=== PATIENT | female | born 1990 | race Caucasian/White ===

== ENCOUNTER 2024-04-19 21:09 | Outpatient (REF) | payer BC, SELFPAY ==
[2024-04-22 19:11] LABS: Age Gdln ACOG Testing Note (.); HPV Aptima Negative (Negative); IGP, Aptima HPV, rfx 16/18,45 Note (.)
== END 2024-04-19 21:10 | disposition home or self-care (01) ==
LOC: LAB 21:09
PROVIDERS: PCP Obstetrics & Gynecology; Visit Provider Obstetrics & Gynecology
DX: Z01.419 Encounter for gynecological examination (general) (routine) without abnormal findings (principal)
CPT/HCPCS: 87624; 88175

== ENCOUNTER 2024-05-14 12:48 | Outpatient (OUT) | payer BC, SELFPAY ==
--- NOTE | 2024-05-14 12:51 | US_ITS ---
Patient Name: LEONORA FAYE MR#: [id number] : 1990 Exam Date: 05/14/2024 Ordering Doctor: DR Jarocho Romo . RADIOLOGY REPORT PROCEDURE: MM TOMOSYNTHESIS DIAGNOSTIC BI, 05/14/2024, 13:09 US BREAST LT LIMITED, 05/14/2024, 13:41 COMPARISON: None. INDICATIONS: Left Breast Lump N63.25 Calculator Name NCI Breast Cancer Risk Assessment Tool 5 Year Breast Cancer Risk Not Applicable. Lifetime Breast Cancer Risk Not Applicable. Personal Breast Cancer No Personal Ovarian Cancer No Treatments None Family Cancers None LOCATION: [facility] BREAST COMPOSITION: There are scattered areas of fibroglandular density. FINDINGS: DIAGNOSTIC CATEGORY 1--NEGATIVE. RIGHT BREAST: No significant suspicious finding. LEFT BREAST: Two skin surface markers present over the lateral left breast localize area of palpable lumps. No suspicious mammographic finding. Ultrasound evaluation demonstrates normal appearing fibroglandular tissue. RECOMMENDATIONS: CLINICAL EVALUATION. PLEASE NOTE: A NORMAL MAMMOGRAM DOES NOT EXCLUDE THE POSSIBILITY OF BREAST CANCER. A CLINICALLY SUSPICIOUS PALPABLE LUMP SHOULD BE BIOPSIED. Dictated by: Víctor Esquivel M.D. on 05/14/2024 at 14:14 Approved by: Víctor Esquivel M.D. on 05/14/2024 at 14:17
--- OUTSIDE RECORDS SUMMARY | 2024-05-14 13:05 | XMS_ITS | CCD ---
Author Organization [facility] Inform ion Partnership [facility] Care Team Providers Care Pocket Machine Operator Name Role Phone Shannon Mancilla DO Primary Care Provider SHANNON MANCILLA Primary Care Unavailable SHANNON MANCILLA Referring Unavailable SHANNON MANCILLA Primary Care Unavailable Edelmira Perdomo Unavailable DR SKYLER SEGOVIA Admitting Unavailable DR SKYLER SEGOVIA Attending Unavailable DR SKYLER SEGOVIA Consulting Unavailable Zee Goodman Unavailable SKYLER SEGOVIA Attending Unavailable Medications Current Medications Medication Drug Class(es) Dates Sig (Normalized) Sig (Original) [id number] 200 actuat albuterol 0.09 mg/actuat metered dose inhaler (4 sources) beta2-Adrenergic Agonist Start: 08-08-2023 take 2 puff(s) by inhalation four times daily as needed Albuterol Sulfate HFA 108 (90 Base) MCG/ACT 2 puffs Inhalation 4 times a day prn Jul, Active Start: 12-30-2022 take 2 puff(s) by in halation every four hours as needed Albuterol Sulfate HFA 108 (90 Base) MCG/ACT 2 puffs as needed Inhalation every 4 hrs Dec, Active Start: 12-30-2022 take 2 puff(s) by in halation every four hours as needed Albuterol Sulfate HFA 108 (90 Base) MCG/ACT 2 puffs as needed Inhalation every 4 hrs Dec, Not-Taking Start: 11-12-2021 take 2 puff(s) by in halation four times daily as needed Albuterol Sulfate HFA 108 (90 Base) MCG/ACT 2 puffs Inhalation qid prn Oct, Active amoxicillin 875 mg / clavulanate 125 mg oral tablet (1 source) Penicillin-class Antibacterial Start: 08-08-2023 take 1 tablet by mouth every twelve hours Amoxicillin-Pot Clavulanate 875-125 MG 1 tablet Orally every 12 hrs for 10 day(s) Jul, Active benzonatate 200 mg oral capsule (1 source) Non-narcotic Antitussive Start: 08-08-2023 take 1 capsule by mouth every eight hours Benzonatate 200 MG 1 capsule Orally Three times a day Jul, Active citalopram 20 mg oral tablet (4 sources) Serotonin Reuptake Inhibitor Start: 03-20-2021 take 1 tablet by mouth once daily citalopram (CELEXA) 20 MG tablet Indications: Moderate episode of recurrent major depressive disorder (HCC) Take 1 tablet by mouth daily 30 tablet 0 03/20/2021 Active CeleXA Not-Takin g CeleXA Active levonorgestrel 0.946064 mg/hr intrauterine system (1 source) Progestin, Progestin-containing Intrauterine Device levonorgestrel (KITTY) IUD 13.5 mg 1 each by Intrauterine route once 0 Active predniSONE 20 mg oral tablet (1 source) Start: 2022 take 1 tablet by mouth three times daily, then take 1 tablet by mouth twice daily, then take 1 tablet by mouth once daily, then take 0.5 tablet by mouth once daily, then take 0.5 tablet by mouth every other day predniSONE 20 MG as directed Orally as directed for 8 days Take 1 tablet p.o. 3 times daily x3 days, 1 tablet p.o. twice daily x3 days, 1 tablet daily x2 days, half tablet daily x2 days, half tablet every other day x2 days Jul, Active Completed/Discontinued Medications Medication Drug Class(es) Dates Sig (Normalized) Sig (Original) azithromycin 250 mg oral tablet (3 sources) Macrolide Antimicrobial Start: 12-30-2022 Azithromycin 250 MG 2 tablets on the first day, then 1 tablet daily for 4 days Orally Once a day for 5 day(s) Dec, Not-Taking Start: 11-12-2021 Zithromax 250 MG 2 tablet on the first day, then 1 tablet daily for 4 days Orally Once a day for 5 day(s) Oct, Active methylPREDNISolone 4 mg oral tablet (3 sources) Corticosteroid Start: 12-30-2022 methylPREDNISo lone 4 MG as directed Orally Once a day for 6 days Dec, Not-Taking Start: 11-12-2021 Medrol 4 MG as directed Orally for 6 days Oct, Active TB Test (2 sources) Start: 06-21-2020 TB Test May .01 mL Problems Problem Classification Problem Date Documented Date Episodic/Chronic Chronic obstructive pulmonary disease and bronchiectasis (3 sources) Bronchitis, not specified as acute or chronic Onset: 11-12-2021 Resolved: 11-12-2021 Episodic Immunizations and screening for infectious disease (2 sources) Encounter for screening for human papillomavirus (HPV); Translations: [Contact with and (suspected) exposure to other viral communicable diseases] Onset: 07-31-2022 Episodic Other connective tissue disease (1 source) Swelling of left lower limb; Translations: [Other specified soft tissue disorders] Episodic Other screening for suspected conditions (not mental disorders or infectious disease) (4 sources) Encounter for screening for malignant neoplasm of cervix; Translations: [ENC SCREENING MALIG NEOPLASM CERV] Onset: 07-29-2022 Episodic Results Test Name Value Interpretation Reference Range Facility COVID + FLU Quick Testingon 12-30-2022 SARS-CoV-2 (COVID-19) RNA MASON+probe Ql (Unsp spec) Negative [facility] Other COVID + FLU Quick Testing Negative [facility] Other PAP ACOG PANEL 2: 30 to 65on 08-07-2022 . . Normal [facility] Comment on above: Result Comment: Perf ormed at: WB Performed By: #### [id number] #### [facility] [address] [address] [address] Oli Epps Age Gdln ACOG Testing 30-65 Normal [facility] Comment on above: Performed By: #### [id number] #### [facility] [address] [address] [address] Oli Epps DIAGNOSIS: Comment Abnormal [facility] Comment on above: Result Comment: EPIT HELIAL CELL ABNORMALITY. LOW GRADE SQUAMOUS INTRAEPITHELIAL LESION (LSIL). Performed at: [facility] Performed By: #### [id number] #### [facility] [address] [place] [address] Dr. Oli Epps Electronically signed by: Comment Normal [facility] Comment on above: Result Comment: Jd Palacio MD, Pathologist Performed at: WB Performed By: #### [id number] #### [facility] [address] [place] [address] Dr. Oli Epps HPV Aptima Negative Normal Negative [facility] Comment on above: Result Comment: This nucleic acid amplification test detects fourteen high-risk HPV types (16,18,31,33,35,39,45,51,52,56,58,59,66,68) without differentiation. Performed at: =G Performed By: #### [id number] #### [facility] [address] [place] [address] Dr. Oli Epps Methodology: Comment Normal [facility] Comment on above: Result Comment: This liquid based ThinPrep(R) pap test was screened with the use of an image guided system. Performed at: WB Performed By: #### [id number] #### [facility] [address] [place] [address] Dr. Oli Epps Note: Comment Normal [facility] Comment on above: Result Comment: The Pap smear is a screening test designed to aid in the detection of premalignant and malignant conditions of the uterine cervix. It is not a diagnostic procedure and should not be used as the sole means of detecting cervical cancer. Both false-positive and false-negative reports do occur. . Performed at: WB Performed By: #### [id number] #### [facility] [address] [place] [address] Dr. Oli Epps Pathologist Provided ICD10 Comment Normal [facility] Comment on above: Result Comment: [id number] Performed at: WB Performed By: #### [id number] #### [facility] [address] [place] [address] Dr. Oli Epps Performed by: Comment Normal [facility] Comment on above: Result Comment: Raza Klein, Finishing Operator (ASCP) Performed at: WB Performed By: #### [id number] #### [facility] [address] [place], [place] [address] Dr. Oli Epps Specimen adequacy: Comment Normal [facility] Comment on above: Result Comment: Sati sfactory for evaluation. Endocervical and/or squamous metaplastic cells (endocervical component) are present. Performed at: WB Performed By: #### [id number] #### [facility] [address] [address] [address] Oli Epps XR CHEST (2 VW)on 11-07-2021 SARS-CoV-2 (COVID-19) Ab IA Ql Exam: XR CHEST (2 VW) CLINICAL HISTORY: U07.1 Lab test positive for detection of COVID-19 virus ICD10 COMPARISON: None CHEST X-ray, 2 VIEWS FINDINGS: The cardiomediastinal silhouette is within normal limits. There are no infiltrates, consolidations or effusions. There is mild thoracolumbar scoliosis. IMPRESSION: No radiographic evidence of acute intrathoracic process. Interpreted by: Kwame Ibarra MD Signed by: Kwame Ibarra MD 11/07/21 Final result Normal [facility] US DUP LOWER EXTREMITY LEFT VENon 03-31-2021 US DUP LOWER EXTREMITY LEFT MICK US DUP LOWER EXTREMITY LEFT MICK : 03/31/2021 CLINICAL HISTORY: M79.89 Left leg swelling ICD10. COMPARISON: None available. Grayscale, compression, color and waveform Doppler analysis of the left lower extremity deep venous system was performed with augmentation. FINDINGS: There is no deep venous thrombosis, abnormal masses, organized fluid collections or other findings of concern identified within the left lower extremity. IMPRESSION: NO LEFT LOWER EXTREMITY DVT IDENTIFIED. Interpreted by: Víctor Franks MD Signed by: Víctor Franks MD 03/31/21 Final result Normal [facility] US DUP LOWER EXTREMITY LEFT VENOrdered By: Shannon Mancilla on 03-31-2021 NO LEFT LOWER EXTREMITY DVT IDENTIFIED. [employer] [facility] Work Phone: US DUP LOWER EXTREMITY LEFT MICK : 03/31/2021 CLINICAL HISTORY: M79.89 Left leg swelling ICD10. COMPARISON: None available. Grayscale, compression, color and waveform Doppler analysis of the left lower extremity deep venous system was performed with augmentation. FINDINGS: There is no deep venous thrombosis, abnormal masses, organized fluid collections or other findings of concern identified within the left lower extremity. [facility] Phone: Nathan, Chpo Incoming Radiant Results From [employer] - 03/31/2021 2:18 PM EDT US DUP LOWER EXTREMITY LEFT MICK : 03/31/2021 CLINICAL HISTORY: M79.89 Left leg swelling ICD10. COMPARISON: None available. Grayscale, compression, color and waveform Doppler analysis of the left lower extremity deep venous system was performed with augmentation. FINDINGS: There is no deep venous thrombosis, abnormal masses, organized fluid collections or other findings of concern identified within the left lower extremity. IMPRESSION: NO LEFT LOWER EXTREMITY DVT IDENTIFIED. [facility] Phone: [facility] Phone: HIV Ag/Abon 03-22-2021 HIV Ag/Ab Non-Reactive Normal NR [facility] Comment on above: Result Comment: No l aboratory evidence of HIV infection. If acute HIV infection is suspected, consider testing for HIV-1 RNA. [facility] [address] [place] [id number] CBC With Platelet No Differe ntialon 03-20-2021 Erythrocyte distribution width (RBC) [Ratio] 14.1 % Normal 11.5-14.5 [facility] Comment on above: Performed By: #### C BCND #### [facility] [address] [place] [address] Hematocrit (Bld) [Volume fraction] 40.7 % Normal 37.0-47.0 [facility] Comment on above: Performed By: #### C BCND #### [facility] [address] [place] [address] Hemoglobin (Bld) [Mass/Vol] 13.8 g/dL Normal 12.0-16.0 [facility] Comment on above: Performed By: #### C BCND #### [facility] [address] [place] [address] MCH (RBC) [Entitic mass] 29.2 pg Normal 27.0-31.3 [facility] Comment on above: Performed By: #### C BCND #### [facility] [address] [place] [address] MCHC 33.8 % Normal 33.0-37.0 [facility] Comment on above: Performed By: #### C BCND #### [facility] [address] [place] [address] MCV (RBC) [Entitic vol] 86.4 fL Normal 82.0-100.0 [facility] Comment on above: Performed By: #### C BCND #### [facility] [address] [place] [address] Platelets (Bld) [#/Vol] 395 10*3/uL Normal 130-400 [facility] Comment on above: Performed By: #### C BCND #### [facility] [address] [place] [address] RBC (Bld) [#/Vol] 4.71 10*6/uL Normal 4.20-5.40 [facility] Comment on above: Performed By: #### C BCND #### [facility] [address] [place] [address] WBC (Bld) [#/Vol] 8.5 10*3/uL Normal 4.8-10.8 [facility] Comment on above: Performed By: #### C BCND #### [facility] [address] [place] [address] Comprehensive Metabolic Pane mary ellen 03-20-2021 Albumin [Mass/Vol] 4.7 g/dL Critically high 3.5-4.6 M [facility] Comment on above: Performed By: #### C MP #### [facility] [address] [place] [address] ALP [Catalytic activity/Vol] 77 U/L Normal 40-130 [facility] Comment on above: Performed By: #### C MP #### [facility] [address] [place] [address] ALT [Catalytic activity/Vol] 6 U/L Normal 0-33 [facility] Comment on above: Performed By: #### C MP #### [facility] [address] [address] Anion gap [Moles/Vol] 12 mmol/L Normal 9-15 [facility] Comment on above: Performed By: #### C MP #### [facility] [address] [address] AST [Catalytic activity/Vol] 13 U/L Normal 0-35 [facility] Comment on above: Performed By: #### C MP #### [facility] [address] [address] Bilirubin [Mass/Vol] 0.7 mg/dL Normal 0.2-0.7 [facility] Comment on above: Performed By: #### C MP #### [facility] [address] [address] Calcium [Mass/Vol] 9.2 mg/dL Normal 8.5-9.9 [facility] Comment on above: Performed By: #### C MP #### [facility] [address] [address] Chloride [Moles/Vol] 106 mmol/L Normal 95-107 [facility] Comment on above: Performed By: #### C MP #### [facility] [address] [place] [address] CO2 [Moles/Vol] 23 mmol/L Normal 20-31 [facility] Comment on above: Performed By: #### C MP #### [facility] [address] [place] [address] Creatinine [Mass/Vol] 0.57 mg/dL Normal 0.50-0.90 [facility] Comment on above: Performed By: #### C MP #### [facility] [address] [place] [address] GFR >60.0 Normal >60 [facility] Comment on above: Result Comment: >60 mL/min/1.73m2 EGFR, calc. for ages 18 and older using the MDRD formula (not corrected for weight), is valid for stable renal function. Performed By: #### C MP #### [facility] [address] [place] [address] GFR/1.73 sq M.predicted among blacks MDRD (S/P/Bld) [Vol rate/Area] mL/min/{1.73_m2} Normal >60 [facility] Comment on above: Result Comment: >60 mL/min/1.73m2 EGFR, calc. for ages 18 and older using the MDRD formula (not corrected for weight), is valid for stable renal function. Performed By: #### C MP #### [facility] [address] [place] [address] Globulin (S) [Mass/Vol] 2.3 g/dL Normal 2.3-3.5 [facility] Comment on above: Performed By: #### C MP #### [facility] [address] [place] [address] Glucose [Mass/Vol] 81 mg/dL Normal 70-99 [facility] Comment on above: Performed By: #### C MP #### [facility] [address] [place] [address] Potassium [Moles/Vol] 4.2 mmol/L Normal 3.4-4.9 [facility] Comment on above: Performed By: #### C MP #### [facility] [address] [place] [address] Protein [Mass/Vol] 7.0 g/dL Normal 6.3-8.0 [facility] Comment on above: Performed By: #### C MP #### [facility] [address] [place] [address] Sodium [Moles/Vol] 141 mmol/L Normal 135-144 [facility] Comment on above: Performed By: #### C MP #### [facility] [address] [place] [address] Urea nitrogen [Mass/Vol] 10 mg/dL Normal 6-20 [facility] Comment on above: Performed By: #### C MP #### [facility] [address] [place] [address] Hepatitis C Antibodyon 03-20 Hepatitis C Antibody Interp Non-Reactive Normal [facility] Comment on above: Performed By: #### H CVAB #### [facility] [address] [place] [address] Lipid Panelon 03-20-2021 Cholesterol [Mass/Vol] 206 mg/dL Critically high 0-199 [facility] Comment on above: Result Comment: ATP III Cholesterol Classification is Borderline High. Performed By: #### L IPID #### [facility] [address] [place] [address] Cholesterol in HDL [Mass/Vol] 41 mg/dL Normal 40-59 [facility] Comment on above: Result Comment: ATP III HDL Cholesterol Classification is Desirable. Expected Values: Males: >55 = No Risk 35-55 = Moderate Risk <35 = High Risk Females: >65 = No Risk 45-65 = Moderate Risk <45 = High Risk NCEP Guidelines: Third Report February 2001 >59 = negative risk factor for CHD <40 = major risk factor for CHD Performed By: #### L IPID #### [facility] [address] [place] [address] Cholesterol in LDL [Mass/Vol] 134 mg/dL Critically high 0-129 [facility] Comment on above: Result Comment: ATT III Classification is Borderline High. Performed By: #### L IPID #### [facility] [address] [place] [address] Triglyceride [Mass/Vol] 153 mg/dL Critically high 0-150 [facility] Comment on above: Result Comment: ATP III Triglycerides Classification is Borderline High. Performed By: #### L IPID #### [facility] [address] [place] [address] CORONAVIRUS 2019 BY PCRon CORONAVIRUS 2019,PCR NOT DETECTED Normal Not Detected [facility] Comment on above: Result Comment: . This assay is designed to detect the N, ORF1ab and/or S genes of SARS-CoV-2 via nucleic acid amplification. A Negative (NOT DETECTED) result does not preclude 2019-nCoV infection since the adequacy of sample collection and/or low viral burden may result in presence of viral nucleic acids below the clinical sensitivity of this test method. Negative (NOT DETECTED) result should not be used as the sole basis for treatment or other patient management decisions. Rather negative results should be combined with clinical observations, patient history, and epidemiological information to make patient management decisions. Fact sheet for providers: https://www.fda.gov/media/298307/download Fact sheet for patients: https://www.fda.gov/media/719868/download This test has received FDA Emergency Use Authorization (EUA) and has been verified by [facility] ([facility]). This test is only authorized for the duration of time that circumstances exist to justify the authorization of the emergency use of in vitro diagnostic tests for the detection of SARS-CoV-2 virus and/or diagnosis of COVID-19 infection under section 564(b)(1) of the Act, 21 U.S.C. 360bbb-3(b)(1), unless the authorization is terminated or revoked sooner. [facility] is certified under CLIA-88 as qualified to perform high complexity testing. Testing is performed in the [facility] laboratories located at [address] [place] [address]. Performed By: #### C OV19 #### [address] [place] [address] CORONAVIRUS 2019 BY PCRon EMPLOYED IN HEALTHCARE? No Normal [facility] Comment on above: Performed By: #### C OV19 #### [address] [place] [address] FIRST COVID NASAL SWAB TEST? No Normal [facility] Comment on above: Performed By: #### C OV19 #### [address] [place] [address] HOSPITALIZED (OR PLANNED TO BE ADMITTED)? No Normal [facility] Comment on above: Performed By: #### C OV19 #### [facility] [address] [place] [address] ICU? No Normal [facility] Comment on above: Performed By: #### C OV19 #### [facility] [address] [place] [address] ? No Normal [facility] Comment on above: Performed By: #### C OV19 #### [facility] [address] [place] [address] RESIDENT IN CONGREGATE CARE SETTING? No Normal [facility] Comment on above: Performed By: #### C OV19 #### [facility] [address] [place] [address] SYMPTOMATIC DEFINED BY CDC? No Normal [facility] Comment on above: Performed By: #### C OV19 #### [facility] [address] [place] [address] Lab Specimen Source Nasal, Nasopharyngeal Normal [facility] Comment on above: Performed By: #### C OV19 #### [facility] [address] [place] [id number] Vital Signs Date Time Vital Sign Value Performing Clinician Facility 08-08-2023 13:50-0400 Body height 161.93 cm Edelmira Perdomo Other [facility] Other 08-08-2023 13:50-0400 Body mass index (BMI) [Ratio] 34.08 kg/m2 Edelmira Perdomo Other [facility] Other 08-08-2023 13:50-0400 Body temperature 98.4 [degF] Edelmira Perdomo Other [facility] Other 08-08-2023 13:50-0400 Body weight 89.36 kg Edelmira Perdomo Other [facility] Other 08-08-2023 13:50-0400 Diastolic blood pressure 70 mm[Hg] Edelmira Perdomo Other [facility] Other 08-08-2023 13:50-0400 Respiratory rate 18 /min Edlemira Perdomo Other [facility] Other 08-08-2023 13:50-0400 SaO2% (BldA) [Mass fraction] 98 % Edelmira Perdomo Other [facility] Other 08-08-2023 13:50-0400 Systolic blood pressure 124 mm[Hg] Edelmira Perdomo Other [facility] Other 12-30-2022 17:40-0500 Body height 161.93 cm Zee Aguirreault Other [facility] Other 12-30-2022 17:40-0500 Body mass index (BMI) [Ratio] 34.6 kg/m2 Zee Maxine Other [facility] Other 12-30-2022 17:40-0500 Body temperature 97.7 [degF] Zee Maxine Other [facility] Other 12-30-2022 17:40-0500 Body weight 90.72 kg Zee Maxine Other [facility] Other 12-30-2022 17:40-0500 Respiratory rate 18 /min Zee Maxine Other [facility] Other 12-30-2022 17:40-0500 SaO2% (BldA) [Mass fraction] 98 % Zee Goodman Other [facility] Other 11-12-2021 15:30-0500 Body height 161.93 cm Edelmira Christensenmond Other [facility] Other 11-12-2021 15:30-0500 Body mass index (BMI) [Ratio] 34.6 kg/m2 Edelmira Christensenmond Other [facility] Other 11-12-2021 15:30-0500 Body temperature 96.6 [degF] Edelmira Perdomo Other [facility] Other 11-12-2021 15:30-0500 Body weight 90.72 kg Eedlmira Christensenmond Other [facility] Other 11-12-2021 15:30-0500 SaO2% (BldA) [Mass fraction] 99 % Edelmira Perdomo Other [facility] Other Encounters Encounter Date Encounter Type Care Provider Facility Start: 04-19-2024 End: 04-19-2024 ambulatory SKYLER SEGOVIA Not Available Start: 08-08-2023 End: 08-08-2023 ambulatory Edelmira Leanne Other [facility] Other Start: 08-08-2023 Office outpatient visit 15 minutes Edelmira Perdomo [facility] Start: 12-30-2022 End: 12-30-2022 ambulatory Zee Goodman Other [facility] Other Start: 12-30-2022 Office outpatient visit 15 minutes Zee Goodman [facility] Start: 07-29-2022 End: 07-29-[address] SKYLER SEGOVIA Facility: Start: 11-12-2021 End: 11-12-2021 ambulatory Edelmira Perdomo Other [facility] Other Start: 11-12-2021 Office outpatient visit 15 minutes Edelmira Perdomo [facility] Start: 11-07-2021 End: 11-07-2021 ambulatory SHANNON [facility] Start: 03-31-2021 End: 04-03-2021 ambulatory SHANNON [facility] Start: 03-31-2021 End: 04-02-2021 Subsequent hospital visit by physician Norma [facility] 1 [facility] [place] [facility] Comment on above: Left leg swelling Procedures Date Procedure Procedure Detail Performing Clinician Start: 03-31-2021 Dup-scan xtr veins unilateral/limited study Shannon Mancilla DO Work Phone: Start: 09-05-2020 Follow-up visit Plan of Treatment Date Care Activity Detail Author Start: 06-27-2021 Influenza vaccination Flu vacc ine (Season Ended) [facility] Phone: Start: 04-20-2021 End: 04-20-2021 Patient encounter procedure 04/20/2021 Office Visit Family Medicine Shannon Mancilla DO [address] [id number] [facility] Start: 02-01-2012 Screening for malign ant neoplasm of cervix Cervical cancer screen [facility] Phone: Start: 2010 DTaP/Tdap/Td vaccine (1 - Tdap) DTaP/Tdap/Td vaccine (1 - Tdap) [employer] Phone: Start: 2003 COVID-19 Vaccine (1) COVID-19 Vaccin e (1) [employer] Phone: Start: 02-01-1992 Varicella vaccine (1 of 2 - 2-dose childhood series) Varicella vaccine (1 of 2 - 2-dose childhood series) [employer] Phone: Payers Date Payer Category Payer Unknown [id number] 1991 Unknown [id number] 1991 Unknown [id number] [id number] 1991 Unknown [id number] 1958 Medicaid [id number] 1958 Unknown [id number] Social History Date Type Detail Facility Start: 03-20-2021 Tobacco smoking stat [facility] Never smoker [employer] Phone: Start: 03-20-2021 Tobacco use and exposure Never used [employer] Start: 03-20-2021 History SDOH Financial 5 [employer] Phone: Start: 03-20-2021 History SDOH Food Worry 1 [employer] Phone: Start: 1990 Sex Assigned At Not on file [facility] Phone: Exposure to SARS-CoV -2 (event) Not sure [employer] Phone: Sex Assigned At Sex Assigned At [facility] [place] Other Evaluation note 08-08-2023 Note Date & Type Note Facility 08-08-2023 Evaluation note Encounter Date Diagnosis Assessment Notes Jul, Bronchitis (ICD-10 - J40) Drink plenty fluids, get plenty of rest. Take the amoxicillin with clavulanate and prednisone as prescribed until gone. Take the benzonatate capsules as prescribed as needed for cough. Use the albuterol inhaler as prescribed as needed for cough or shortness of breath. Take Tylenol or Motrin for aches pains or fevers. Follow-up with your family physician if no improvement in 2 to 3 days [place] Other Evaluation note 12-30-2022 Note Date & Type Note Facility 12-30-2022 Evaluation note Encounter Date Diagnosis Assessment Notes Dec, Contact with and (suspected) exposure to other viral communicable diseases (ICD-10 - Z20.828) Dec, Bronchitis (ICD-10 - J40) Take medications as directed. Rest and increase fluid intake. Take meds with food to prevent stomach upset. Use inhaler as needed for coughing spells and SOB. It is better to use inhaler a few times a day over the next 2-3 days. Follow up with primary care provider if symptoms do not improve with treatment plan, although it may take a few weeks for the cough to go away [place] Other Evaluation note 11-12-2021 Note Date & Type Note Facility 11-12-2021 Evaluation note Encounter Date Diagnosis Assessment Notes Oct, Bronchitis (ICD-10 - J40) Drink plenty of fluids, get plenty of rest. Take the Medrol Dosepak and the Zithromax as prescribed until gone. Use the albuterol inhaler as prescribed as needed for cough or shortness of breath. Tylenol or Motrin for aches pains or fevers. Follow-up with your family physician if no improvement in 2 to 3 days. [place] Other Evaluation note Note Date & Type Note Facility Evaluation note Diagnosis Left leg swelling documented in this encounter [employer] Phone: History general Narrative - Reported Note Date & Type Note Facility History general Narrative - Reported Type Medical History scoliosis [place] Other History general Narrative - Reported Note Date & Type Note Facility History general Narrative - Reported Type Medical History scoliosis Surgical History gallbladder 2021 [place] Other Summary Purpose Family History No Family History Records FoundNo Family History Records FoundNo Family History Records FoundNo Family History Records FoundNo Family History Records FoundNo Family History Records Found Advance Directives No Advanced Directives Records FoundNo Advanced Directives Records FoundNo Advanced Directives Records FoundNo Advanced Directives Records FoundNo Advanced Directives Records FoundNo Advanced Directives Records Found Reason for Referral Status Reason Specialty Diagnoses / Procedures Referred By Contact Referred To Contact Pending Review Radiology Diagnoses Left leg swelling Procedures US DUP LOWER EXTREMITY LEFT MICK Shannon Mancilla DO [address] [address] Additional Source Comments INFORMATION SOURCE (unrecogn ized section and content) DATE CREATED AUTHOR 09/05/2020 [employer] DATE CREATED AUTHOR AUTHOR'S ORGANIZ ATION 01/21/2021 [facility] DATE CREATED AUTHOR AUTHOR'S ORGANIZ ATION 03/24/2021 [facility] DATE CREATED AUTHOR AUTHOR'S ORGANIZ ATION 11/08/2021 [facility] DATE CREATED AUTHOR AUTHOR'S ORGANIZ ATION 08/07/2022 [facility] DATE CREATED AUTHOR AUTHOR'S ORGANIZ ATION 04/19/2024 [facility] Reason for Visit (unrecogniz ed section and content) Status Reason Specialty Diagnoses / Procedures Referred By Contact Referred To Contact Pending Review Radiology Diagnoses Left leg swelling Procedures US DUP LOWER EXTREMITY LEFT MICK Shannon Mancilla DO [address] [address] FOR RECORDS PERTAINING TO PATIENTS WHO ARE OR HAVE BEEN ENROLLED IN A CHEMICAL DEPENDENCY/SUBSTANCEABUSE PROGRAM, SOME INFORMATION MAY BE OMITTED. This clinical summary was aggregated from multiple sources. Caution should be exercised in using it in the provision of clinical care. This summary normalizes information from multiple sources, and as a consequence, information in this document may materially change the coding, format and clinical context of patient data. In addition, data may be omitted in some cases. CLINICAL DECISIONS SHOULD BE BASED ON THE PRIMARY CLINICAL RECORDS. [employer] provides no warranty or guarantee of the accuracy or completeness of information in this document.
== END 2024-05-14 12:49 | disposition home or self-care (01) ==
LOC: MAMMO 12:49
PROVIDERS: PCP Obstetrics & Gynecology; Visit Provider Obstetrics & Gynecology
DX: N63.25 Unspecified lump in the left breast, overlapping quadrants (principal)
CPT/HCPCS: 76642; 77066; G0279